=== PATIENT | female | born 1960 | race Caucasian/White ===

== ENCOUNTER 2022-02-02 21:01 | Emergency (ER) | payer SELFPAY ==
[~2022-02-02] VITALS: Ht 170.2 cm; Wt 52.3 kg
[2022-02-02 21:23] VITALS: BP 141/99
== END 2022-02-03 05:02 | disposition left against medical advice (07) ==
LOC: EMS 21:04
DX: M79.605 Pain in left leg (principal); I10 Essential (primary) hypertension; F12.90 Cannabis use, unspecified, uncomplicated; F19.90 Other psychoactive substance use, unspecified, uncomplicated
CPT/HCPCS: 99283; Z7502

== ENCOUNTER 2022-02-22 00:31 | Emergency (ER) | payer OTHER ==
[~2022-02-22] VITALS: Ht 170.2 cm; Wt 50.0 kg
[2022-02-22 00:51] VITALS: BP 118/72
== END 2022-02-22 04:28 | disposition home or self-care (01) ==
LOC: EMS 00:34
DX: R10.13 Epigastric pain (principal); F10.20 Alcohol dependence, uncomplicated; F12.10 Cannabis abuse, uncomplicated; F17.210 Nicotine dependence, cigarettes, uncomplicated; I10 Essential (primary) hypertension
CPT/HCPCS: 93005; 99281; Z7502

== ENCOUNTER 2022-05-04 14:36 | Inpatient (IN) | payer MEDICAID, OTHER ==
[~2022-05-04] VITALS: Ht 162.6 cm; Wt 52.6 kg
[2022-05-04 17:27] LABS: BASOPHILS % (AUTO) 0.5 % (0.0-2.0); EOSINOPHILS % (AUTO) 1.9 % (1.0-6.0); HEMATOCRIT 36.5 % (36-46); HEMOGLOBIN 11.9 g/dL (12.0-16.0); LYMPHOCYTES % (AUTO) 13.9 % (22.0-44.0); MEAN CORPUSCULAR HEMOGLOBIN 27.6 pg (26.0-34.0); MEAN CORPUSCULAR HGB CONC 32.6 G/dL (31.0-37.0); MEAN CORPUSCULAR VOLUME 85 fL (80-100); MONOCYTES # (AUTO) 0.6 K/uL (0.1-1.0); MONOCYTES % (AUTO) 8.7 % (2.0-9.0); NEUTROPHILS # (AUTO) 5.6 K/uL (1.8-7.7); PLATELET COUNT (AUTO) 254 K/uL (150-450); RED BLOOD CELL COUNT(AUTO) 4.32 MIL/uL (4.00-5.20); RED CELL DISTRIBUTION WIDTH 15.3 % (11.5-14.5)
[2022-05-04 17:30] LABS: COVID AG,FIA SOURCE NASOPHARYNGEAL
[2022-05-04 17:41] LABS: ANION GAP 9 mmol/L (8-16); CALCIUM, TOTAL 7.9 mg/dL (8.8-10.5); CARBON DIOXIDE 26 mmol/L (22-29); CHLORIDE 106 mmol/L (98-107); CREATININE 1.05 mg/dL (0.60-1.30); GLOMERULAR FILTR. RATE CALC 53 mL/min (>60); GLUCOSE,RANDOM 82 mg/dL (70-110); POTASSIUM 3.5 mmol/L (3.5-5.1); SODIUM SERUM 141 mmol/L (136-145); UREA NITROGEN, BLOOD 32 mg/dL (7-18)
[2022-05-04 17:56] LABS: ALANINE AMINOTRANSFERASE 23 U/L (12-78); ALBUMIN 2.8 g/dL (3.4-5.0); ALKALINE PHOSPHATASE 95 U/L (46-116); ASPARTATE AMINOTRANSFERASE 23 U/L (15-37); BILIRUBIN,TOTAL 0.2 mg/dL (0.1-1.0); THYROID STIMULATING HORMONE 1.46 uIU/mL (0.36-3.74); TOTAL PROTEIN, SERUM 5.9 g/dL (6.4-8.2)
[2022-05-04] MEDS ORDERED: CEPHALEXIN MONOHYDRATE 500 MG CAPSULE PO ONE (22:15)
[2022-05-04] MEDS ORDERED: ACETAMINOPHEN 325 MG TABLET PO ONE (22:15)
[2022-05-05] MEDS ORDERED: HALOPERIDOL 5 MG TABLET PO PRN (02:30)
[2022-05-05] MEDS ORDERED: LORazepam 2 MG TABLET ONE (02:33)
[2022-05-05] MEDS: LORazepam 2 MG TABLET PO PRN ×3 (02:49→17:52)
[2022-05-05] MEDS ORDERED: CEPHALEXIN MONOHYDRATE 500 MG CAPSULE PO ONE (03:00)
[2022-05-05 12:00] VITALS: BP 155/90
[2022-05-05] MEDS ORDERED: PROMETHAZINE HCL 25 MG TABLET PO PRN (12:15)
[2022-05-05] MEDS ORDERED: GuaiFENesin/D-METHORPHAN [SUGAR-FREE] 200-20MG/10 ML SYRUP UDCUP PO PRN (12:15)
[2022-05-05] MEDS ORDERED: MAG HYDROX/AL HYDROX/SIMETH ES 30 ML SUSPENSION UDCUP PO PRN (12:15)
[2022-05-05] MEDS ORDERED: TUBERCULIN, PURIFIED PROTEIN DERIVATIVE 5 TU/0.1 ML SYRINGE ID ONE (12:15)
[2022-05-05] MEDS ORDERED: MAGNESIUM HYDROXIDE SUSPENSION 30 ML UDCUP PO PRN (12:15)
[2022-05-05] MEDS ORDERED: HydrOXYzine PAMOATE 50 MG CAPSULE PO PRN (12:15)
[2022-05-05] MEDS ORDERED: ACETAMINOPHEN 325 MG TABLET PO PRN (12:15)
[2022-05-05] MEDS ORDERED: LOPERAMIDE HCL 2 MG CAPSULE PO PRN (12:15)
[2022-05-05] MEDS: THIAMINE 100 MG TABLET PO SCH (16:30)
[2022-05-05] MEDS ORDERED: CloNIDine HCL 0.1 MG TABLET PO PRN (18:30)
[2022-05-05] MEDS: OLANZapine 5 MG RAPDIS TABLET PO SCH (20:43)
[2022-05-05] MEDS: MELATONIN 5 MG TABLET PO SCH (20:43)
[2022-05-06] MEDS: CEPHALEXIN MONOHYDRATE 500 MG CAPSULE PO SCH ×6 (06:08→20:04)
[2022-05-06 08:31] LABS: HEMOGLOBIN A1C 5.3 % (3.8-5.6)
[2022-05-06] MEDS: LORazepam 2 MG TABLET PO PRN ×3 (08:44→22:48)
[2022-05-06 08:45] LABS: FREE T4 (FREE THYROXINE) 0.92 ng/dL (0.76-1.46); THYROID STIMULATING HORMONE 2.07 uIU/mL (0.36-3.74)
[2022-05-06] MEDS: NALTREXONE HCL 50 MG TABLET PO SCH (08:48)
[2022-05-06] MEDS: MULTIVITAMINS WITH MINERALS, THERAPEUTIC TABLET PO SCH (08:48)
[2022-05-06] MEDS: THIAMINE 100 MG TABLET PO SCH ×3 (08:48→17:04)
[2022-05-06] MEDS: OMEGA-3/DHA/EPA/FISH OIL 1,000 MG CAPSULE PO SCH (08:49)
[2022-05-06] MEDS: FOLIC ACID 1 MG TABLET PO SCH (08:49)
[2022-05-06 16:11] VITALS: BP 139/83
[2022-05-06] MEDS: OLANZapine 5 MG RAPDIS TABLET PO SCH (20:04)
[2022-05-06] MEDS: MELATONIN 5 MG TABLET PO SCH (20:04)
[2022-05-07 09:10] VITALS: BP 146/86
[2022-05-07] MEDS: CEPHALEXIN MONOHYDRATE 500 MG CAPSULE PO SCH ×4 (10:20→20:14)
[2022-05-07] MEDS: MULTIVITAMINS WITH MINERALS, THERAPEUTIC TABLET PO SCH (10:20)
[2022-05-07] MEDS: LORazepam 2 MG TABLET PO PRN ×2 (10:21→14:45)
[2022-05-07] MEDS: THIAMINE 100 MG TABLET PO SCH ×2 (10:21→17:09)
[2022-05-07] MEDS: FOLIC ACID 1 MG TABLET PO SCH (10:21)
[2022-05-07] MEDS: OMEGA-3/DHA/EPA/FISH OIL 1,000 MG CAPSULE PO SCH (10:21)
[2022-05-07] MEDS: OLANZapine 5 MG RAPDIS TABLET PO PRN (10:21)
[2022-05-07] MEDS: NALTREXONE HCL 50 MG TABLET PO SCH (13:03)
[2022-05-07 16:11] VITALS: BP 141/81
[2022-05-07 20:11] VITALS: BP 141/77
[2022-05-07] MEDS: MELATONIN 5 MG TABLET PO SCH (20:13)
[2022-05-07] MEDS: OLANZapine 10 MG RAPDIS TABLET PO SCH (20:14)
[2022-05-07] MEDS: DIVALPROEX SODIUM 500 MG ER TABLET PO SCH (20:14)
[2022-05-08] MEDS: OMEGA-3/DHA/EPA/FISH OIL 1,000 MG CAPSULE PO SCH (08:27)
[2022-05-08] MEDS: FOLIC ACID 1 MG TABLET PO SCH (08:27)
[2022-05-08] MEDS: THIAMINE 100 MG TABLET PO SCH ×2 (08:27→17:00)
[2022-05-08] MEDS: MULTIVITAMINS WITH MINERALS, THERAPEUTIC TABLET PO SCH (08:28)
[2022-05-08] MEDS: NALTREXONE HCL 50 MG TABLET PO SCH (08:28)
[2022-05-08] MEDS: LORazepam 2 MG TABLET PO PRN ×2 (08:28→18:06)
[2022-05-08] MEDS: CEPHALEXIN MONOHYDRATE 500 MG CAPSULE PO SCH ×4 (08:28→20:07)
[2022-05-08 08:30] VITALS: BP 142/88
[2022-05-08] MEDS: DIVALPROEX SODIUM 500 MG ER TABLET PO SCH (20:06)
[2022-05-08] MEDS: MELATONIN 5 MG TABLET PO SCH (20:07)
[2022-05-08] MEDS: OLANZapine 10 MG RAPDIS TABLET PO SCH (20:07)
[2022-05-09] MEDS: POVIDONE-IODINE 10% 120 ML SOLUTION TP SCH (09:00)
[2022-05-09] MEDS: BACITRACIN 28 GM OINTMENT TP SCH (09:00)
[2022-05-09] MEDS: THIAMINE 100 MG TABLET PO SCH ×2 (10:49→17:59)
[2022-05-09] MEDS: CEPHALEXIN MONOHYDRATE 500 MG CAPSULE PO SCH ×4 (10:49→20:33)
[2022-05-09] MEDS: OMEGA-3/DHA/EPA/FISH OIL 1,000 MG CAPSULE PO SCH (10:49)
[2022-05-09] MEDS: LORazepam 2 MG TABLET PO PRN ×2 (10:49→18:00)
[2022-05-09] MEDS: MULTIVITAMINS WITH MINERALS, THERAPEUTIC TABLET PO SCH (10:49)
[2022-05-09] MEDS: FOLIC ACID 1 MG TABLET PO SCH (10:49)
[2022-05-09] MEDS: NALTREXONE HCL 50 MG TABLET PO SCH (10:50)
[2022-05-09 10:55] VITALS: BP 131/82
[2022-05-09] MEDS: OLANZapine 10 MG RAPDIS TABLET PO SCH (20:34)
[2022-05-09] MEDS: DIVALPROEX SODIUM 500 MG ER TABLET PO SCH (20:34)
[2022-05-09] MEDS: MELATONIN 5 MG TABLET PO SCH (20:38)
[2022-05-10 08:08] VITALS: BP 150/91
[2022-05-10] MEDS: THIAMINE 100 MG TABLET PO SCH ×2 (08:55→16:30)
[2022-05-10] MEDS: OMEGA-3/DHA/EPA/FISH OIL 1,000 MG CAPSULE PO SCH (08:55)
[2022-05-10] MEDS: NALTREXONE HCL 50 MG TABLET PO SCH (08:56)
[2022-05-10] MEDS: CEPHALEXIN MONOHYDRATE 500 MG CAPSULE PO SCH ×4 (08:56→20:17)
[2022-05-10] MEDS: FOLIC ACID 1 MG TABLET PO SCH (08:56)
[2022-05-10] MEDS: MULTIVITAMINS WITH MINERALS, THERAPEUTIC TABLET PO SCH (08:57)
[2022-05-10] MEDS: POVIDONE-IODINE 10% 120 ML SOLUTION TP SCH (09:00)
[2022-05-10] MEDS: BACITRACIN 28 GM OINTMENT TP SCH (09:00)
[2022-05-10] MEDS: LORazepam 2 MG TABLET PO PRN ×2 (12:56→18:08)
[2022-05-10 16:07] VITALS: BP 101/55
[2022-05-10] MEDS: DIVALPROEX SODIUM 500 MG ER TABLET PO SCH (20:17)
[2022-05-10] MEDS: OLANZapine 10 MG RAPDIS TABLET PO SCH (20:18)
[2022-05-10] MEDS: MELATONIN 5 MG TABLET PO SCH (20:18)
[2022-05-11] MEDS: LORazepam 2 MG TABLET PO PRN ×4 (02:28→18:02)
[2022-05-11 08:20] VITALS: BP 172/98
[2022-05-11] MEDS: BACITRACIN 28 GM OINTMENT TP SCH (09:00)
[2022-05-11] MEDS: POVIDONE-IODINE 10% 120 ML SOLUTION TP SCH (09:00)
[2022-05-11] MEDS: OMEGA-3/DHA/EPA/FISH OIL 1,000 MG CAPSULE PO SCH (09:03)
[2022-05-11] MEDS: OLANZapine 5 MG RAPDIS TABLET PO PRN ×2 (09:03→13:23)
[2022-05-11] MEDS: NALTREXONE HCL 50 MG TABLET PO SCH (09:03)
[2022-05-11] MEDS: THIAMINE 100 MG TABLET PO SCH ×2 (09:03→16:31)
[2022-05-11] MEDS: FOLIC ACID 1 MG TABLET PO SCH (09:03)
[2022-05-11] MEDS: MULTIVITAMINS WITH MINERALS, THERAPEUTIC TABLET PO SCH (09:03)
[2022-05-11] MEDS: CEPHALEXIN MONOHYDRATE 500 MG CAPSULE PO SCH ×4 (09:03→20:18)
[2022-05-11 11:13] LABS: COVID AG,FIA SOURCE NASOPHARYNGEAL
[2022-05-11] MEDS: DIVALPROEX SODIUM 500 MG ER TABLET PO SCH (20:18)
[2022-05-11] MEDS: MELATONIN 5 MG TABLET PO SCH (20:19)
[2022-05-11] MEDS: PARoxetine HCL 20 MG TABLET PO SCH (21:00)
[2022-05-11] MEDS: OLANZapine 10 MG RAPDIS TABLET PO SCH (21:00)
[2022-05-12] MEDS: POVIDONE-IODINE 10% 120 ML SOLUTION TP SCH (09:00)
[2022-05-12] MEDS: BACITRACIN 28 GM OINTMENT TP SCH (09:00)
[2022-05-12] MEDS: LORazepam 2 MG TABLET PO PRN (09:18)
[2022-05-12] MEDS: OMEGA-3/DHA/EPA/FISH OIL 1,000 MG CAPSULE PO SCH (09:18)
[2022-05-12] MEDS: CEPHALEXIN MONOHYDRATE 500 MG CAPSULE PO SCH ×4 (09:18→21:33)
[2022-05-12] MEDS: OLANZapine 5 MG RAPDIS TABLET PO PRN (09:18)
[2022-05-12] MEDS: FOLIC ACID 1 MG TABLET PO SCH (09:18)
[2022-05-12] MEDS: THIAMINE 100 MG TABLET PO SCH ×2 (09:18→17:00)
[2022-05-12] MEDS: NALTREXONE HCL 50 MG TABLET PO SCH (09:18)
[2022-05-12] MEDS: MULTIVITAMINS WITH MINERALS, THERAPEUTIC TABLET PO SCH (09:18)
[2022-05-12] MEDS: OLANZapine 5 MG RAPDIS TABLET PO SCH ×2 (17:00→21:33)
[2022-05-12] MEDS: LORazepam 0.5 MG TABLET PO SCH ×2 (17:00→21:33)
[2022-05-12] MEDS: DIVALPROEX SODIUM 500 MG ER TABLET PO SCH (21:33)
[2022-05-12] MEDS: MELATONIN 5 MG TABLET PO SCH (21:33)
[2022-05-12] MEDS: PARoxetine HCL 20 MG TABLET PO SCH (21:33)
[2022-05-13] MEDS: OLANZapine 5 MG RAPDIS TABLET PO SCH ×4 (07:57→22:10)
[2022-05-13] MEDS: OMEGA-3/DHA/EPA/FISH OIL 1,000 MG CAPSULE PO SCH (07:57)
[2022-05-13] MEDS: NALTREXONE HCL 50 MG TABLET PO SCH (07:57)
[2022-05-13] MEDS: FOLIC ACID 1 MG TABLET PO SCH (07:57)
[2022-05-13] MEDS: THIAMINE 100 MG TABLET PO SCH ×2 (07:57→16:43)
[2022-05-13] MEDS: CEPHALEXIN MONOHYDRATE 500 MG CAPSULE PO SCH ×4 (07:57→20:14)
[2022-05-13] MEDS: MULTIVITAMINS WITH MINERALS, THERAPEUTIC TABLET PO SCH (07:57)
[2022-05-13] MEDS: LORazepam 0.5 MG TABLET PO SCH ×4 (07:59→20:14)
[2022-05-13] MEDS: POVIDONE-IODINE 10% 120 ML SOLUTION TP SCH (08:01)
[2022-05-13] MEDS: BACITRACIN 28 GM OINTMENT TP SCH (08:01)
[2022-05-13] MEDS: DIVALPROEX SODIUM 500 MG ER TABLET PO SCH (20:14)
[2022-05-13] MEDS: MELATONIN 5 MG TABLET PO SCH (20:14)
[2022-05-13] MEDS ORDERED: PARoxetine HCL 20 MG TABLET PO SCH (21:00)
[2022-05-14 08:00] VITALS: BP 154/85
[2022-05-14] MEDS: POVIDONE-IODINE 10% 120 ML SOLUTION TP SCH (09:00)
[2022-05-14] MEDS: BACITRACIN 28 GM OINTMENT TP SCH (09:00)
[2022-05-14] MEDS: CEPHALEXIN MONOHYDRATE 500 MG CAPSULE PO SCH ×4 (09:14→20:19)
[2022-05-14] MEDS: LORazepam 0.5 MG TABLET PO SCH ×3 (09:14→16:38)
[2022-05-14] MEDS: NALTREXONE HCL 50 MG TABLET PO SCH (09:14)
[2022-05-14] MEDS: OLANZapine 5 MG RAPDIS TABLET PO SCH ×4 (09:14→20:20)
[2022-05-14] MEDS: THIAMINE 100 MG TABLET PO SCH ×2 (09:14→16:38)
[2022-05-14] MEDS: FOLIC ACID 1 MG TABLET PO SCH (09:14)
[2022-05-14] MEDS: MULTIVITAMINS WITH MINERALS, THERAPEUTIC TABLET PO SCH (09:14)
[2022-05-14] MEDS: OMEGA-3/DHA/EPA/FISH OIL 1,000 MG CAPSULE PO SCH (09:14)
[2022-05-14] MEDS: MELATONIN 5 MG TABLET PO SCH (20:18)
[2022-05-14] MEDS: DIVALPROEX SODIUM 500 MG ER TABLET PO SCH (20:19)
[2022-05-14] MEDS: PARoxetine HCL 20 MG TABLET PO SCH (20:19)
[2022-05-15 08:00] VITALS: BP 161/82
[2022-05-15] MEDS: LORazepam 0.5 MG TABLET PO SCH ×3 (08:14→16:53)
[2022-05-15] MEDS: THIAMINE 100 MG TABLET PO SCH (08:14)
[2022-05-15] MEDS: FOLIC ACID 1 MG TABLET PO SCH (08:14)
[2022-05-15] MEDS: NALTREXONE HCL 50 MG TABLET PO SCH (08:14)
[2022-05-15] MEDS: OMEGA-3/DHA/EPA/FISH OIL 1,000 MG CAPSULE PO SCH (08:14)
[2022-05-15] MEDS: MULTIVITAMINS WITH MINERALS, THERAPEUTIC TABLET PO SCH (08:14)
[2022-05-15] MEDS: OLANZapine 5 MG RAPDIS TABLET PO SCH ×4 (08:14→20:34)
[2022-05-15] MEDS: CEPHALEXIN MONOHYDRATE 500 MG CAPSULE PO SCH ×2 (08:14→13:27)
[2022-05-15] MEDS: POVIDONE-IODINE 10% 120 ML SOLUTION TP SCH (08:15)
[2022-05-15] MEDS: BACITRACIN 28 GM OINTMENT TP SCH (08:15)
[2022-05-15 18:00] VITALS: BP_SYST 165; BP_SYST 169; BP_DIAS 87; BP_DIAS 92
[2022-05-15] MEDS: DIVALPROEX SODIUM 500 MG ER TABLET PO SCH (20:33)
[2022-05-15] MEDS: PARoxetine HCL 20 MG TABLET PO SCH (20:34)
[2022-05-15] MEDS: MELATONIN 5 MG TABLET PO SCH (20:34)
[2022-05-16] MEDS: OLANZapine 5 MG RAPDIS TABLET PO SCH ×4 (08:50→20:41)
[2022-05-16] MEDS: NALTREXONE HCL 50 MG TABLET PO SCH (08:50)
[2022-05-16] MEDS: MULTIVITAMINS WITH MINERALS, THERAPEUTIC TABLET PO SCH (08:50)
[2022-05-16] MEDS: OMEGA-3/DHA/EPA/FISH OIL 1,000 MG CAPSULE PO SCH (08:50)
[2022-05-16] MEDS: AmLODIPine BESYLATE 5 MG TABLET PO SCH (08:51)
[2022-05-16] MEDS: LORazepam 0.5 MG TABLET PO SCH ×3 (08:51→17:32)
[2022-05-16] MEDS: BACITRACIN 28 GM OINTMENT TP SCH (08:58)
[2022-05-16] MEDS: POVIDONE-IODINE 10% 120 ML SOLUTION TP SCH (08:58)
[2022-05-16 16:09] VITALS: BP 120/76
[2022-05-16] MEDS: PARoxetine HCL 20 MG TABLET PO SCH (20:40)
[2022-05-16] MEDS: MELATONIN 5 MG TABLET PO SCH (20:40)
[2022-05-16] MEDS: DIVALPROEX SODIUM 500 MG ER TABLET PO SCH (20:41)
[2022-05-17 08:42] VITALS: BP 168/99
[2022-05-17] MEDS: AmLODIPine BESYLATE 5 MG TABLET PO SCH (08:48)
[2022-05-17] MEDS: LORazepam 0.5 MG TABLET PO SCH ×3 (08:48→16:49)
[2022-05-17] MEDS: OMEGA-3/DHA/EPA/FISH OIL 1,000 MG CAPSULE PO SCH (08:48)
[2022-05-17] MEDS: OLANZapine 5 MG RAPDIS TABLET PO SCH ×4 (08:48→20:35)
[2022-05-17] MEDS: MULTIVITAMINS WITH MINERALS, THERAPEUTIC TABLET PO SCH (08:48)
[2022-05-17] MEDS: BACITRACIN 28 GM OINTMENT TP SCH (08:49)
[2022-05-17] MEDS: NALTREXONE HCL 50 MG TABLET PO SCH (08:49)
[2022-05-17] MEDS: POVIDONE-IODINE 10% 120 ML SOLUTION TP SCH (08:50)
[2022-05-17 16:27] VITALS: BP 91/60
[2022-05-17] MEDS: MELATONIN 5 MG TABLET PO SCH (20:27)
[2022-05-17] MEDS: DIVALPROEX SODIUM 500 MG ER TABLET PO SCH (20:27)
[2022-05-17] MEDS: PARoxetine HCL 20 MG TABLET PO SCH (20:27)
[2022-05-18] MEDS: NALTREXONE HCL 50 MG TABLET PO SCH (08:23)
[2022-05-18] MEDS: AmLODIPine BESYLATE 5 MG TABLET PO SCH (08:23)
[2022-05-18] MEDS: LORazepam 0.5 MG TABLET PO SCH ×3 (08:23→16:47)
[2022-05-18] MEDS: OLANZapine 5 MG RAPDIS TABLET PO SCH ×4 (08:23→20:42)
[2022-05-18] MEDS: MULTIVITAMINS WITH MINERALS, THERAPEUTIC TABLET PO SCH (08:24)
[2022-05-18] MEDS: OMEGA-3/DHA/EPA/FISH OIL 1,000 MG CAPSULE PO SCH (08:24)
[2022-05-18] MEDS: POVIDONE-IODINE 10% 120 ML SOLUTION TP SCH (09:00)
[2022-05-18] MEDS: BACITRACIN 28 GM OINTMENT TP SCH (09:00)
[2022-05-18] MEDS: DIVALPROEX SODIUM 500 MG ER TABLET PO SCH (20:38)
[2022-05-18] MEDS: PARoxetine HCL 20 MG TABLET PO SCH (20:38)
[2022-05-18] MEDS: MELATONIN 5 MG TABLET PO SCH (20:40)
[2022-05-19] MEDS: BACITRACIN 28 GM OINTMENT TP SCH (09:00)
[2022-05-19] MEDS: POVIDONE-IODINE 10% 120 ML SOLUTION TP SCH (09:00)
[2022-05-19] MEDS: NALTREXONE HCL 50 MG TABLET PO SCH (09:27)
[2022-05-19] MEDS: OMEGA-3/DHA/EPA/FISH OIL 1,000 MG CAPSULE PO SCH (09:28)
[2022-05-19] MEDS: MULTIVITAMINS WITH MINERALS, THERAPEUTIC TABLET PO SCH (09:28)
[2022-05-19] MEDS: AmLODIPine BESYLATE 5 MG TABLET PO SCH (09:29)
[2022-05-19] MEDS: OLANZapine 5 MG RAPDIS TABLET PO SCH ×4 (09:29→20:28)
[2022-05-19] MEDS: LORazepam 0.5 MG TABLET PO SCH (09:29)
[2022-05-19] MEDS ORDERED: GABAPENTIN 300 MG CAPSULE PO PRN (11:15)
[2022-05-19] MEDS: GABAPENTIN 300 MG CAPSULE PO SCH ×3 (14:02→20:28)
[2022-05-19 16:12] VITALS: BP 100/64
[2022-05-19 16:23] LABS: COVID AG,FIA SOURCE NASAL SWAB
[2022-05-19] MEDS ORDERED: DIVA-80 PO (17:37)
[2022-05-19] MEDS ORDERED: NALT50TA PO (17:37)
[2022-05-19] MEDS ORDERED: MELA5TAB40 PO (17:37)
[2022-05-19] MEDS ORDERED: OMEG-135 PO (17:37)
[2022-05-19] MEDS ORDERED: PARO-37 PO (17:37)
[2022-05-19] MEDS ORDERED: GABA-1181 PO (17:37)
[2022-05-19] MEDS ORDERED: OLAN5TAB94 PO (17:37)
[2022-05-19] MEDS: MELATONIN 5 MG TABLET PO SCH (20:20)
[2022-05-19] MEDS: DIVALPROEX SODIUM 500 MG ER TABLET PO SCH (20:20)
[2022-05-19] MEDS: PARoxetine HCL 20 MG TABLET PO SCH (20:21)
[2022-05-20] MEDS: BACITRACIN 28 GM OINTMENT TP SCH (09:00)
[2022-05-20] MEDS: POVIDONE-IODINE 10% 120 ML SOLUTION TP SCH (09:00)
[2022-05-20] MEDS ORDERED: AMLO-257 PO (09:07)
[2022-05-20] MEDS ORDERED: MULT-1203 PO (09:08)
[2022-05-20] MEDS: NALTREXONE HCL 50 MG TABLET PO SCH (09:52)
[2022-05-20] MEDS: OLANZapine 5 MG RAPDIS TABLET PO SCH ×2 (09:55→12:08)
[2022-05-20] MEDS: OMEGA-3/DHA/EPA/FISH OIL 1,000 MG CAPSULE PO SCH (09:55)
[2022-05-20] MEDS: GABAPENTIN 300 MG CAPSULE PO SCH ×2 (09:55→12:08)
[2022-05-20] MEDS: MULTIVITAMINS WITH MINERALS, THERAPEUTIC TABLET PO SCH (09:55)
[2022-05-20] MEDS: AmLODIPine BESYLATE 5 MG TABLET PO SCH (09:57)
[2022-05-20] MEDS ORDERED: GABA-1181 PO (10:05)
[2022-05-20] MEDS ORDERED: NALT50TA PO (10:05)
[2022-05-20] MEDS ORDERED: OLAN5TAB94 PO (10:05)
[2022-05-20] MEDS ORDERED: PARO-37 PO (10:05)
[2022-05-20] MEDS ORDERED: MELA5TAB40 PO (10:05)
[2022-05-20] MEDS ORDERED: OMEG-135 PO (10:05)
[2022-05-20] MEDS ORDERED: DIVA-80 PO (10:05)
== END 2022-05-20 10:50 | disposition home or self-care (01) | DRG 750 ==
LOC: EMS 14:37 → 3EI 05-05 10:30 → 3EC 05-06 23:25
PROVIDERS: ADMIT Psychiatry & Neurology Psychiatry; ATTEND Psychiatry & Neurology Psychiatry
DX: F25.1 Schizoaffective disorder, depressive type (principal); E46 Unspecified protein-calorie malnutrition; L03.116 Cellulitis of left lower limb; R45.851 Suicidal ideations; Z91.14 Patient's other noncompliance with medication regimen; D64.9 Anemia, unspecified; Z20.822 Contact with and (suspected) exposure to COVID-19; F41.9 Anxiety disorder, unspecified; N18.31 Chronic kidney disease, stage 3a; I12.9 Hypertensive chronic kidney disease with stage 1 through stage 4 chronic kidney disease, or unspecified chronic kidney disease; Z59.00 Homelessness unspecified; Z79.899 Other long term (current) drug therapy; Z91.19 Patient's noncompliance with other medical treatment and regimen; Z68.1 Body mass index [BMI] 19.9 or less, adult
CPT/HCPCS: 80053; 80061; 80164; 83036; 84439; 84443; 84484; 85025; 93005; 99285; G0480; Q9967

== ENCOUNTER 2022-07-16 19:04 | Emergency (ER) | payer MEDICAID, OTHER ==
[~2022-07-16] VITALS: Ht 157.5 cm; Wt 52.3 kg
[~2022-07-16 19:04] MED LIST: AMLO-257 PO; DIVA-80 PO; GABA-1181 PO; MELA5TAB40 PO; MULT-1203 PO; NALT50TA PO; OLAN5TAB94 PO; OMEG-135 PO; PARO-37 PO
[2022-07-16] MEDS ORDERED: ACETAMINOPHEN 500 MG TABLET PO ONE (20:00)
[2022-07-16 20:35] VITALS: BP 122/79
== END 2022-07-16 20:55 | disposition home or self-care (01) ==
LOC: EMS 19:34
DX: R21 Rash and other nonspecific skin eruption (principal)
CPT/HCPCS: 99283